=== PATIENT | male | born 1945 | race Caucasian/White ===

== ENCOUNTER → 2020-11-14 | Outpatient (CLI) | payer MEDICARE ==
[~2020-11-14] MED LIST: ACID REDUCER20 MG PO; ALLOPURINOL100 MG PO; ASPIRIN CHEWABL81 MG PO; ATORVASTATIN CA40 MG PO; BACTROBAN OINT22 GM EXT; CARVEDILOL25 MG PO; CARVEDILOL6.25 MG PO; COREG 12.5MG12.5 MG PO; FINASTERIDE5 MG PO; FISH OIL 1,0001 EAC1 PO; FISH OIL 1,0001 EACH PO; FLOMAX 0.4 MG0.4 MG PO; FUROSEMIDE40 MG PO; GLUCAGEN1 MG/1 ML IM; GLUCOPHAGE 500500 MG PO; GLUCOPHAGE500 MG PO; GLUTOSE 1537.5 GM PO; HUMULIN 70100 UNIT/2 SC; PRINIVIL10 MG PO; PROSCAR5 MG PO; ZESTRIL/PRINIVI10 MG PO; ZOFRAN4 MG PO
== END ==
LOC: LAB 11:41
PROVIDERS: Family Medicine
DX: E87.5 Hyperkalemia (principal)
CPT/HCPCS: 36415; 80048

== ENCOUNTER → 2020-11-24 | Outpatient (CLI) | payer MEDICARE | LOC: KOH-I 10:15 | DX: R79.89 Other specified abnormal findings of blood chemistry (principal) | CPT/HCPCS: 76775 ==

== ENCOUNTER → 2020-12-30 | Outpatient (CLI) | payer MEDICARE ==
[2020-12-30 10:53] LABS: BUN/CREATININE RATIO 18 (0-10)
[2020-12-31 12:12] LABS: CREATININE, URINE 44.1 mg/dL (Not Estab.); MICROALB/CREAT RATIO <7 (0-29)
== END ==
LOC: LAB 09:42
PROVIDERS: Internal Medicine Nephrology
DX: N18.31 Chronic kidney disease, stage 3a (principal); E87.1 Hypo-osmolality and hyponatremia
CPT/HCPCS: 36415; 80053; 81001; 82043; 82533; 82570; 84443

== ENCOUNTER → 2020-12-30 | Outpatient (CLI) | payer MEDICARE | LOC: EXRD 08:15 | DX: I70.203 Unspecified atherosclerosis of native arteries of extremities, bilateral legs (principal); I73.89 Other specified peripheral vascular diseases | CPT/HCPCS: 93926 ==

== ENCOUNTER → 2021-02-20 | Outpatient (CLI) | payer MEDICARE | LOC: KOH-I 08:00 | DX: M79.672 Pain in left foot (principal); L97.522 Non-pressure chronic ulcer of other part of left foot with fat layer exposed; M19.072 Primary osteoarthritis, left ankle and foot; M79.89 Other specified soft tissue disorders | CPT/HCPCS: 73700 ==